=== PATIENT | female | born 1955 | race Two or more races ===

== ENCOUNTER 2019-12-10 12:45 | Inpatient (IN) | payer OTHER ==
[~2019-12-10] VITALS: Ht 167.6 cm; Wt 76.7 kg
[2019-12-10] MEDS ORDERED: SYNTHROID150 MCG (13:06)
[2019-12-10] MEDS ORDERED: EVISTA60 MG (13:07)
[2019-12-10] MEDS ORDERED: ESCITALOPRAM OX10 MG (13:07)
[2019-12-10] MEDS ORDERED: ALPHA LIPOIC A600 MG (13:07)
[2019-12-10] MEDS ORDERED: MAGNESIUM400 M1 (13:08)
[2019-12-16] MEDS ORDERED: MAXIMUM D3325 MCG PO (10:21)
[2019-12-18] MEDS ORDERED: INTESTINEX680 M1 PO (12:39)
[2019-12-18] MEDS ORDERED: LEVAQUIN750 MG PO (12:39)
[2019-12-18] MEDS ORDERED: FLUCONAZOLE200 MG PO (12:40)
== END 2019-12-18 15:35 | disposition home or self-care (01) | DRG 195 ==
LOC: ER 12:45 → SEC-K 15:59 → MEDJ 15:59
PROVIDERS: ADMIT Internal Medicine
PROC: 3E0F7GC Introduction of Other Therapeutic Substance into Respiratory Tract, Via Natural or Artificial Opening (ICD-10-PCS; principal; 2019-12-10)
PROC: BB24ZZZ Computerized Tomography (CT Scan) of Bilateral Lungs (ICD-10-PCS; 2019-12-10)
PROC: 8E0ZXY6 Isolation (ICD-10-PCS; 2019-12-10)
DX: J15.7 Pneumonia due to Mycoplasma pneumoniae (principal); E03.8 Other specified hypothyroidism; J41.0 Simple chronic bronchitis; J22 Unspecified acute lower respiratory infection; F17.200 Nicotine dependence, unspecified, uncomplicated; Z77.29 Contact with and (suspected) exposure to other hazardous substances

== ENCOUNTER → 2021-10-04 | Emergency (ER) | payer OTHER ==
[~2021-10-04] VITALS: Ht 170.2 cm; Wt 83.9 kg
[~2021-10-04] MED LIST: ALPHA LIPOIC A600 MG; CITALOPRAM HBR10 MG PO; CLONAZEPAM0.5 MG PO; ESCITALOPRAM OX10 MG; EVISTA60 MG; EZETIMIBE10 MG PO; FLUCONAZOLE200 MG PO; INTESTINEX680 M1 PO; LEVAQUIN750 MG PO; LEVOTHYROXINE150 MCG PO; MAGNESIUM400 M1; MAXIMUM D3325 MCG PO; OMEGA-31000 MG PO; PANTOPRAZOLE SO40 MG PO; RESTORIL30 MG PO; SYNTHROID150 MCG
== END | disposition left against medical advice (07) ==
LOC: ER 10:42
DX: Z53.20 Procedure and treatment not carried out because of patient's decision for unspecified reasons (principal)

== ENCOUNTER 2021-10-06 14:48 | Outpatient (CLI) | payer OTHER | END 2021-10-06 15:48 | disposition home or self-care (01) | LOC: ASH CLINIC 14:48 | PROVIDERS: ATTEND General Practice | DX: U07.1 COVID-19 (principal); Z23 Encounter for immunization ==